=== PATIENT | female | born 1995 | race African-American/Black ===

== ENCOUNTER 2019-10-03 01:52 | Emergency (ER) | payer OTHER ==
[~2019-10-03] VITALS: Ht 162.6 cm; Wt 55.0 kg
[2019-10-03] MEDS ORDERED: KETOROLAC 30MG/ML VIAL IM ONE (03:15)
[2019-10-03] MEDS ORDERED: ONDANSETRON HCL 4MG/2ML INJ IV ONE (04:30)
[2019-10-03] MEDS ORDERED: PROPOFOL 200MG/20ML VIAL IV ONE (04:30)
[2019-10-03] MEDS ORDERED: HYDROCODONE/ACETAMINOPHEN 5/325MG TABLET PO ONE (06:00)
[2019-10-03] MEDS ORDERED: HYDROCODONE/ACETAMINOPHEN 5/325MG TABLET PO STA (09:25)
[2019-10-03 09:32] VITALS: BP 111/74
== END 2019-10-03 09:40 | disposition short-term general hospital (02) ==
LOC: ER 01:52 → CANBEDREQ 09:17 → ER 09:40
DX: S73.004A Unspecified dislocation of right hip, initial encounter (principal); Z96.641 Presence of right artificial hip joint; Z85.830 Personal history of malignant neoplasm of bone; W01.0XXA Fall on same level from slipping, tripping and stumbling without subsequent striking against object, initial encounter; Y93.01 Activity, walking, marching and hiking; Y92.89 Other specified places as the place of occurrence of the external cause; Y99.8 Other external cause status
CPT/HCPCS: 27250; 72170; 73501; 73552; 96372; 96374; 99152; 99285; J1885; J2405; J2704; Z7610